=== PATIENT | female | born 1985 | race Caucasian/White ===

== ENCOUNTER 2017-02-03 09:06 | Emergency (ER) | payer OTHER ==
[~2017-02-03] VITALS: Ht 160 cm; Wt 80.0 kg
[~2017-02-03 09:06] MED LIST: EQL400TA PO; IBUP800 PO; METH5SOL3 PO; PERI8.6T PO; PRENCAP6 PO
[2017-02-03 09:08] VITALS: BP 153/69; PULSE 108; RESP 18; TEMP 98.5; O2SAT 97
[2017-02-03] MEDS ORDERED: KETOROLAC TROMETHAMINE 60 MG/2 ML (IM) VIAL IM ONE (09:30)
[2017-02-03] MEDS ORDERED: ONDANSETRON ODT 4 MG TAB PO ONE (09:30)
[2017-02-03] MEDS ORDERED: AMOXICILLIN 875 MG TAB PO ONE (09:30)
[2017-02-03] MEDS ORDERED: AMOX875T PO (09:39)
[2017-02-03] MEDS ORDERED: TRAM50 PO (09:39)
--- NOTE | 2017-02-03 09:41 | PD ---
HPI Chief Complaint: Oral / Dental Pain or Problem Time Seen by Provider: 09:27 Travel History International Travel<30 days: No Contact w/Intl Traveler<30days: No Traveled to known affect area: No History of Present Illness HPI c/o 1 week history of right toothache, with gum swelling around it, states 9/10 , nonrad, no alleviating factors, aggravated by chewing. PFSH Past Medical History Diminished Hearing: No Immunizations Current: Yes Ulcer: Yes ?: Not LMP: 01/29/17 : 3 Para: 3 Miscarriage: 0 : 0 Past Surgical History Gynecologic Surgery: Yes (breast augmentation) Other Surgery: Yes (Breast augmentation) Social History Alcohol Use: No Tobacco Use: Yes (smokes a half a pack of cigarettes per week) Substance Use: No Allergies-Medications (Allergen,Severity, Reaction): Coded Allergies: No Known Allergies (Unverified , 10/23/15) Reported Meds & Prescriptions Reported Meds & Active Scripts Active Marilynn-Colace 8.6-50 mg (Sennosides-Docusate Sodium) 1 Tab Tab 2 Tab PO Q12H PRN Motrin 800 Mg Tab (Ibuprofen) 800 Mg Tab 800 Mg PO Q6H PRN Reported Eql Folic Acid (Folic Acid) 400 Mcg Tab 400 Mcg PO 1 ( Multivitamins) Cap 1 Cap PO DAILY Methadone HCl 5 Mg/5 Ml Enedina 145 Mg PO DAILY Review of Systems Except as stated in HPI: all other systems reviewed are Neg General / Constitutional: No: Fever Eyes: No: Visual changes HENT: Positive: Dental Difficulties Cardiovascular: No: Chest Pain or Discomfort Respiratory: No: Shortness of Breath Gastrointestinal: No: Abdominal Pain Genitourinary: No: Dysuria Musculoskeletal: No: Pain Skin: No Rash Neurologic: No: Weakness Psychiatric: No: Depression Endocrine: No: Polydipsia Hematologic/Lymphatic: No: Easy Bruising Physical Exam Narrative GENERAL: SKIN: Warm and dry. HEAD: Atraumatic. Normocephalic. EYES: Pupils equal and round. No scleral icterus. No injection or drainage. ENT: No nasal bleeding or discharge. Mucous membranes pink and moist.....right first mandibular molar with localized edema/erythema c/w abscess, no facial extension NECK: Trachea midline. No JVD. CARDIOVASCULAR: Regular rate and rhythm. RESPIRATORY: No accessory muscle use. Clear to auscultation. Breath sounds equal bilaterally. GASTROINTESTINAL: Abdomen soft, non-tender, nondistended. Hepatic and splenic margins not palpable. MUSCULOSKELETAL: Extremities without clubbing, cyanosis, or edema. No obvious deformities. NEUROLOGICAL: Awake and alert. No obvious cranial nerve deficits. Motor grossly within normal limits. Five out of 5 muscle strength in the arms and legs. Normal speech. PSYCHIATRIC: Appropriate mood and affect; insight and judgment normal. Data Data Last Documented VS Vital Signs Date Time Temp Pulse Resp B/P (MAP) Pulse Ox O2 Delivery O2 Flow Rate FiO2 02/03/17 09:08 98.5 108 18 153/69 (97) 97 Orders Orders Ketorolac Inj (Toradol Inj) (02/03/17 09:30) Ondansetron Odt (Zofran Odt) (02/03/17 09:30) Amoxicillin (Trimox) (02/03/17 09:30) [facility] Medical Decision Making Medical Screen Exam Complete: Yes Emergency Medical Condition: Yes Medical Record Reviewed: Yes Differential Diagnosis gingivitis v dental abscess v facial abscess v ellyn's angina Narrative Course clinically soft floor of mouth, no cervical lad, no streaking, no facial cellulitis....infection isolated to molar base only Diagnosis Primary Impression: Abscessed tooth Patient Instructions: General Instructions, Toothache (ED) Additional Instructions: take prescriptions and have your tooth extracted by a dentist, no emergency department will be able to help you past antibiotics and pain medications....make sure you make an appointment with a dentist mark Scripts Tramadol (Ultram) 50 Mg Tab 50 MG PO Q4H Y for PAIN, #15 TAB 0 Refills Prov: Jad Barth MD 02/03/17 Amoxicillin (Amoxicillin) 875 Mg Tab 875 MG PO BID for Infection for 10 Days, #20 TAB 0 Refills Prov: Jad Barth MD 02/03/17 Disposition: 01 DISCHARGE HOME Condition: Stable Jad Barth MD Feb 03, 2017 09:41
[2017-02-03] MEDS ORDERED: ALPR1TAB3 PO (09:59)
== END 2017-02-03 11:07 | disposition home or self-care (01) ==
LOC: NEPD 09:06
DX: K04.7 Periapical abscess without sinus (principal); Z72.0 Tobacco use
CPT/HCPCS: 96372; 99284; J1885

== ENCOUNTER 2017-05-12 12:34 | Emergency (ER) | payer OTHER ==
[~2017-05-12 12:34] MED LIST changes: +ALPR1TAB3 PO; -EQL400TA PO; -IBUP800 PO; -METH5SOL3 PO; -PERI8.6T PO; -PRENCAP6 PO; +TRAM50 PO
[2017-05-12 12:36] VITALS: BP 190/104; PULSE 124; RESP 24; TEMP 97.9; O2SAT 98
[2017-05-12] MEDS ORDERED: cloNIDine HCL 0.1 MG TAB PO ONE (14:00)
[2017-05-12] MEDS ORDERED: LORazepam 2 MG/ML VIAL IM ONE (14:00)
[2017-05-12] MEDS ORDERED: ONDANSETRON ODT 4 MG TAB PO ONE (14:00)
--- NOTE | 2017-05-12 14:17 | PD ---
HPI Chief Complaint: Medical Clearance Time Seen by Provider: 13:22 Travel History International Travel<30 days: No Contact w/Intl Traveler<30days: No Traveled to known affect area: No History of Present Illness HPI This patient complains of methadone withdrawal. She had been taking 200 mg daily and then stopped cold turkey 6 days ago. She has history of chronic pain. She wants to get off all narcotics. She does not want a dose now or any other narcotics. She denies any history of IV drug abuse. He complains of nausea and diffuse body aches. She says her legs are restless. No seizure. Symptoms severity is moderate. No alleviating factors. Symptoms exacerbated by high methadone dosing in the past PFSH Past Medical History Anxiety: Yes Diminished Hearing: No Psychiatric: Yes (PTSD) Immunizations Current: Yes Ulcer: Yes : 3 Para: 3 Miscarriage: 0 : 0 Past Surgical History Gynecologic Surgery: Yes Other Surgery: Yes (Breast augmentation) Social History Alcohol Use: No Tobacco Use: Yes (smokes a half a pack of cigarettes per week) Substance Use: No Allergies-Medications (Allergen,Severity, Reaction): Coded Allergies: No Known Allergies (Unverified Adverse Reaction, Unknown, 02/03/17) Reported Meds & Prescriptions Reported Meds & Active Scripts Active Ultram (Tramadol HCl) 50 Mg Tab 50 Mg PO Q4H PRN Reported Alprazolam 1 Mg Tab 1 Mg PO BID PRN Review of Systems General / Constitutional: No: Fever Eyes: No: Visual changes HENT: No: Headaches Cardiovascular: No: Chest Pain or Discomfort Respiratory: No: Shortness of Breath Gastrointestinal: Positive: Nausea, Diarrhea, No: Abdominal Pain Genitourinary: No: Dysuria Musculoskeletal: Positive: Myalgias, Pain Skin: No Rash Neurologic: No: Weakness Psychiatric: Positive: Substance Abuse, No: Depression Endocrine: No: Polydipsia Hematologic/Lymphatic: No: Easy Bruising Physical Exam Narrative GENERAL: Well-nourished, well-developed patient in no apparent distress. SKIN: Focused skin assessment reveals no rash and nodules. Skin is Warm and dry. HEAD: Atraumatic. Normocephalic. EYES: Pupils equal and round. No scleral icterus. No injection or drainage. ENT: No nasal bleeding or discharge. Mucous membranes pink and moist. NECK: Trachea midline. No JVD. CARDIOVASCULAR: Regular rate and rhythm. No murmur appreciated. RESPIRATORY: No accessory muscle use. Clear to auscultation. Breath sounds equal bilaterally. GASTROINTESTINAL: Abdomen soft, non-tender, nondistended. Hepatic and splenic margins not palpable. MUSCULOSKELETAL: No obvious deformities. No clubbing. No cyanosis. No edema. NEUROLOGICAL: Awake and alert. No obvious cranial nerve deficits. Motor grossly within normal limits. Normal speech. PSYCHIATRIC: slightly anxious mood and affect; insight and judgment reasonable. Data Data Last Documented VS Vital Signs Date Time Temp Pulse Resp B/P (MAP) Pulse Ox O2 Delivery O2 Flow Rate FiO2 05/12/17 12:36 97.9 124 24 190/104 (132) 98 Orders Orders Clonidine (Catapres) (05/12/17 14:00) Ondansetron Odt (Zofran Odt) (05/12/17 14:00) Lorazepam Inj (Ativan Inj) (05/12/17 14:00) [facility] Medical Decision Making Medical Screen Exam Complete: Yes Emergency Medical Condition: Yes Medical Record Reviewed: Yes Differential Diagnosis Narcotic withdrawal, overdose, flu syndrome Narrative Course I have reviewed the patient's electronic medical record. Patient is having some methadone withdrawal Does not want any narcotics I gave her dose of Zofran and clonidine and Ativan Prescribe some Zofran and clonidine She is hypertensive now and encouraged to check her blood pressure daily Hopefully gradually symptoms will jose luis but she was taking a very large dose of methadone and abruptly quit so I would expect her to have withdrawal issues She does not want to get back on and taper off but wants to get through this Diagnosis Primary Impression: Methadone withdrawal with complication Additional Instructions: The patient was advised to follow up with their physician and return if they worsen. Check and record blood pressure daily Med/Other Pt SpecificInfo: Prescription(s) given Disposition: DISCHARGE HOME Condition: Stable Fermín Nguyen MD May 12, 2017 14:17
[2017-05-12] MEDS ORDERED: ZOFR4TAB PO (14:18)
[2017-05-12] MEDS ORDERED: GABA100C4 PO (14:18)
[2017-05-12] MEDS ORDERED: CLON0.1T PO (14:18)
[2017-05-12 14:39] VITALS: BP 172/75
== END 2017-05-12 14:40 | disposition home or self-care (01) ==
LOC: NEPD 12:34
DX: F11.23 Opioid dependence with withdrawal (principal); G89.29 Other chronic pain; F43.10 Post-traumatic stress disorder, unspecified; Z72.0 Tobacco use
CPT/HCPCS: 96372; 99283; J2060